=== PATIENT | male | born 1950 | race Caucasian/White ===

== ENCOUNTER → 2016-08-26 | Outpatient (CLI) | payer MEDICARE, MEDICAID ==
[~2016-08-26] MED LIST: AEROCHAMBER1 DEV IH; ALBUTEROL2 PUFFS/17 IN; AMARYL1 MG PO; ASPIRIN EC325 MG PO; ASPIRIN325 MG PO; ATORVASTATIN CA80 MG PO; BENAZEPRIL HYDR20 MG OR; CARVEDILOL6.25 MG PO; CIPRO 500MG TA500 MG PO; DICLOXACILLIN500 MG PO; FERROUS SULFAT325 M2 PO; FISH OIL1000 MG PO; FUROSEMIDE 40MG40 MG PO; K-DUR 20MEQ TA20 MEQ PO; LASIX 40MG. TAB40 MG PO; LIPITOR80 M1 PO; LORTAB 500 MG-71 TAB PO; LOSARTAN POTAS100 MG PO; MECLIZINE25 MG PO; MEDROL 4MG. DOSE4 MG PO; METOPROLOL50 MG PO; NEURONTIN800 MG PO; NEXIUM40 MG PO; NITROQUICK0.4 MG SL; PANTOPRAZOLE SO40 MG PO; PHENERGAN 25MG.25 M1 PO; PLAVIX75 MG PO; REQUIP2 MG PO; TESSALON PERLE200 MG PO; TRAZADONE HYDR100 MG PO; TYLENOL W/CODEI1 TA2 PO; ZITHROMAX Z PA250 MG PO
--- NOTE | 2016-08-26 12:18 | RADIOLOGY REPORT PS360 ---
EXAM: LUMBAR SPINE 5 VIEWS HISTORY: LOW BACK PAIN ORDERING PHYSICIAN: Alfred Stahl MD PATIENT AGE: 66 years COMPARISON: None FINDINGS: Normal alignment. No fracture or dislocation. No lytic or blastic change. There is mild degenerative disc disease at L3-L4 L4-5 and L5-S1. Multilevel osteophytes are present. . Facet arthritic changes are present at L4-5 and L5-S1 Right upper quadrant calcifications are noted consistent with cholelithiasis. Incidental atherosclerotic vascular calcification noted of the aorta. There are some calcifications noted to the left of L2 which may be vascular IMPRESSION: 1. 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 2. Cholelithiasis. 3. Atherosclerotic vascular disease
== END ==
LOC: RAD 11:08
DX: M54.5 Low back pain (principal)